=== PATIENT | male | born 1950 | race Two or more races ===

== ENCOUNTER 2020-11-12 15:22 | Observation (INO) | payer OTHER ==
[2020-11-12 15:41] VITALS: BMI 27.4
[2020-11-12] MEDS ORDERED: ASPIRIN 81 MG CHEWABLE TABLETS PO ONE (16:12)
[2020-11-12] MEDS ORDERED: ASPIRIN 81 MG CHEWABLE TABLETS ONE (16:16)
[2020-11-12 16:57] LABS: BASO % 0.7 % (0-2.0); EOS % 2.1 % (0-4.5); HEMATOCRIT 44.6 % (35.4-49); HEMOGLOBIN 14.9 GM/dL (11.7-16.9); LYMPH % 29.4 % (8-40); MCH 28.7 pg (25.7-33.7); MCHC 33.3 g/dl (32.0-35.9); MEAN CELL VOLUME 86.3 fl (80-96); MEAN PLT VOLUME 8.9 fl (7.5-11.1); MONO % 8.9 % (3.8-10.2); NEUT % 58.9 % (42.8-82.8); RBC 5.18 M/mm3 (4.00-5.60); RDW 14.8 % (11.9-15.9); WHITE BLOOD COUNT 6.8 K/mm3 (4.0-10.0)
[2020-11-12 17:05] LABS: INR 0.8 (0.83-1.09); PROTHROMBIN TIME (PATIENT) 9.9 SEC (9.7-13.0)
[2020-11-12 17:08] LABS: CHLORIDE 103 mmol/L (98-107); POTASSIUM 4.2 mmol/L (3.5-5.1); SODIUM 137 mmol/L (136-145)
[2020-11-12 17:09] LABS: ACTIVATED PTT 31.1 SECONDS (25.2-36.5)
[2020-11-12 17:10] LABS: ALBUMIN 4.1 g/dl (3.4-5.0); CALCIUM 9.2 mg/dL (8.5-10.1)
[2020-11-12 17:11] LABS: ANION GAP 7 MMOL/L (8-16); BLOOD UREA NITROGEN 18.1 mg/dL (7-18); CO2 28 mmol/L (21-32); GLUCOSE,RANDOM 132 mg/dL (74-106)
[2020-11-12 17:14] LABS: SGOT/AST 23 U/L (15-37); SGPT/ALT 37 U/L (13-61)
[2020-11-12 17:15] LABS: BILIRUBIN,TOTAL 0.5 mg/dL (0.2-1); CREATININE 1.3 mg/dL (0.55-1.3); TOT PROT 7.6 g/dl (6.4-8.2)
[2020-11-12 17:16] LABS: ALK PHOS 93 U/L (45-117)
[2020-11-12 17:17] LABS: N-TERMINAL BNP 10.7 pg/ml (5-125)
[2020-11-12 18:21] LABS: PLATELET COUNT 180 K/MM3 (134-434); PLATELET ESTIMATE ADEQUATE
[2020-11-12] MEDS: INSULIN SLIDING SCALE (NOVOLOG) 1 VIAL SQ SCH (23:20)
[2020-11-13] MEDS: INSULIN SLIDING SCALE (NOVOLOG) 1 VIAL SQ SCH ×4 (07:16→22:58)
[2020-11-13 08:56] LABS: BASO % 0.4 % (0-2.0); EOS % 2.4 % (0-4.5); HEMATOCRIT 44.6 % (35.4-49); LYMPH % 28.3 % (8-40); MCH 29.3 pg (25.7-33.7); MCHC 33.8 g/dl (32.0-35.9); MEAN CELL VOLUME 86.9 fl (80-96); MEAN PLT VOLUME 9.2 fl (7.5-11.1); MONO % 9.5 % (3.8-10.2); NEUT % 59.4 % (42.8-82.8); PLATELET COUNT 170 K/MM3 (134-434); RBC 5.13 M/mm3 (4.00-5.60); RDW 14.8 % (11.9-15.9); WHITE BLOOD COUNT 6.6 K/mm3 (4.0-10.0)
[2020-11-13 09:12] LABS: CHLORIDE 104 mmol/L (98-107); POTASSIUM 4.2 mmol/L (3.5-5.1); SODIUM 141 mmol/L (136-145)
[2020-11-13 09:16] LABS: ALBUMIN 4.1 g/dl (3.4-5.0); ANION GAP 7 MMOL/L (8-16); BLOOD UREA NITROGEN 20.9 mg/dL (7-18); CO2 30 mmol/L (21-32); MAGNESIUM 2.2 mg/dL (1.8-2.4)
[2020-11-13 09:17] LABS: GLUCOSE,RANDOM 106 mg/dL (74-106)
[2020-11-13 09:19] LABS: CREATININE 1.2 mg/dL (0.55-1.3); SGOT/AST 22 U/L (15-37); SGPT/ALT 40 U/L (13-61)
[2020-11-13 09:20] LABS: PHOSPHOROUS 4.3 mg/dL (2.5-4.9)
[2020-11-13 09:21] LABS: BILIRUBIN,TOTAL 1.2 mg/dL (0.2-1); TOT PROT 7.4 g/dl (6.4-8.2)
[2020-11-13 09:22] LABS: ALK PHOS 80 U/L (45-117)
[2020-11-13] MEDS ORDERED: ALBUTEROL SO4 HFA INHALER IH PRN (12:25)
[2020-11-13] MEDS ORDERED: ATORVASTATIN CA 10 MG TABLET (FP) PO SCH (22:00)
[2020-11-13] MEDS ORDERED: TAMSULOSIN HCL 0.4 MG CAP PO SCH (22:00)
[2020-11-14] MEDS: INSULIN SLIDING SCALE (NOVOLOG) 1 VIAL SQ SCH ×3 (06:28→17:00)
[2020-11-14] MEDS ORDERED: PANTOPRAZOLE 20 MG TABLET PO SCH (10:00)
[2020-11-14] MEDS ORDERED: LOSARTAN POTASSIUM 50 MG TABLET PO SCH (10:00)
[2020-11-14] MEDS ORDERED: MONTELUKAST NA 10 MG TABLET PO SCH (10:00)
[2020-11-14] MEDS ORDERED: ESCITALOPRAM OXALATE 10 MG TABLET PO SCH (10:00)
[2020-11-14] MEDS ORDERED: PATIENT'S OWN MEDICATION (NON-FORMULARY) (Empagliflozin [Jardiance] 10 MG Tablet) PO SCH (10:00)
[2020-11-14] MEDS ORDERED: REGADENOSON 0.4 MG/5 ML PRE-FILLED SYRINGE IVPUSH ONE ×2 (10:08→10:45)
[2020-11-14 18:13] VITALS: BP 143/73; PULSE 72; TEMP 98
== END 2020-11-14 18:15 | disposition home or self-care (01) ==
LOC: JER 15:22 → JERBED 16:19 → J6WEST-2 11-13 11:47
PROVIDERS: ADMIT Internal Medicine; ATTEND Student in an Organized Health Care Education/Training Program
PROC: 3E033GC Introduction of Other Therapeutic Substance into Peripheral Vein, Percutaneous Approach (ICD-10-PCS; principal; 2020-11-12)
DX: R07.9 Chest pain, unspecified (principal); J45.909 Unspecified asthma, uncomplicated; E11.9 Type 2 diabetes mellitus without complications; I10 Essential (primary) hypertension; E78.5 Hyperlipidemia, unspecified; N40.0 Benign prostatic hyperplasia without lower urinary tract symptoms; I44.7 Left bundle-branch block, unspecified; Z29.9 Encounter for prophylactic measures, unspecified; R79.89 Other specified abnormal findings of blood chemistry
CPT/HCPCS: 36415; 71046-TC-FY; 78452-TC; 80053; 80061; 82550; 82553; 82962; 83036; 83615; 83721; 83735; 83880; 84100; 84439; 84443; 84484; 85025; 85610; 85730; 93005; 93010; 93017; 93306-TC; 96374; 99285-25; A9502; C9803; G0378; J2785; U0003

== ENCOUNTER 2021-09-05 07:27 | Day surgery (SDC) | payer OTHER ==
[2021-09-03 15:52] VITALS: BMI 27.4
[2021-09-05] MEDS ORDERED: PROPOFOL 20 ML ONE ×4 (07:42)
[2021-09-05] MEDS ORDERED: LIDOCAINE HCL/PF 2% SDV 5ML VIAL ONE (07:42)
[2021-09-05 08:04] VITALS: PULSE 70
[2021-09-05] MEDS ORDERED: ePHEDrine SULFATE 50 MG/1 ML AMPULE ONE (09:11)
[2021-09-05 09:17] VITALS: TEMP 97.8
[2021-09-05 09:29] VITALS: BP 124/74
== END 2021-09-05 09:37 | disposition home or self-care (01) ==
LOC: FASU-ENDO 07:27
PROVIDERS: ATTEND Internal Medicine Gastroenterology
PROC: 0DBL8ZX Excision of Transverse Colon, Via Natural or Artificial Opening Endoscopic, Diagnostic (ICD-10-PCS; 2021-09-05)
PROC: 0DBN8ZX Excision of Sigmoid Colon, Via Natural or Artificial Opening Endoscopic, Diagnostic (ICD-10-PCS; 2021-09-05)
PROC: 0DBM8ZX Excision of Descending Colon, Via Natural or Artificial Opening Endoscopic, Diagnostic (ICD-10-PCS; principal; 2021-09-05 08:51)
DX: Z12.11 Encounter for screening for malignant neoplasm of colon (principal); D12.3 Benign neoplasm of transverse colon; D12.4 Benign neoplasm of descending colon; D12.7 Benign neoplasm of rectosigmoid junction; K57.30 Diverticulosis of large intestine without perforation or abscess without bleeding; K64.1 Second degree hemorrhoids
CPT/HCPCS: 82962; 88305-TC

== ENCOUNTER 2021-10-10 07:27 | Day surgery (SDC) | payer OTHER ==
[2021-10-06 14:58] VITALS: BMI 27.4
[2021-10-10] MEDS ORDERED: PROPOFOL 20 ML ONE ×3 (08:13)
[2021-10-10] MEDS ORDERED: LIDOCAINE HCL/PF 2% SDV 5ML VIAL ONE (08:13)
[2021-10-10 09:22] VITALS: PULSE 60
[2021-10-10 09:44] VITALS: TEMP 98
[2021-10-10 10:02] VITALS: BP 138/69
== END 2021-10-10 10:03 | disposition home or self-care (01) ==
LOC: FASU-ENDO 07:27
PROVIDERS: ATTEND Internal Medicine Gastroenterology
PROC: 0DB68ZX Excision of Stomach, Via Natural or Artificial Opening Endoscopic, Diagnostic (ICD-10-PCS; 2021-10-10)
PROC: 0DB48ZX Excision of Esophagogastric Junction, Via Natural or Artificial Opening Endoscopic, Diagnostic (ICD-10-PCS; 2021-10-10)
PROC: 0DB98ZX Excision of Duodenum, Via Natural or Artificial Opening Endoscopic, Diagnostic (ICD-10-PCS; principal; 2021-10-10 08:51)
DX: K22.70 Barrett's esophagus without dysplasia (principal); K31.9 Disease of stomach and duodenum, unspecified
CPT/HCPCS: 82962; 88305-TC; 88342-TC